=== PATIENT | male | born 1955 | race Two or more races ===

== ENCOUNTER 2017-05-15 00:50 | Inpatient (IN) | payer OTHER ==
[~2017-05-15] VITALS: Ht 193 cm; Wt 92.4 kg
[2017-05-15 03:01] LABS: HEMATOCRIT 37.5 % (39.2-51.8); HEMOGLOBIN 12.4 g/dL (13.7-18.0); WHITE BLOOD COUNT 15.3 x10^3/uL (3.4-10)
[2017-05-15 03:14] LABS: BLOOD UREA NITROGEN 13 mg/dL (7-18)
[2017-05-15] MEDS ORDERED: SODIUM CHLORIDE 0.9% 1,000ML IVBOLUS ONE (04:30)
[2017-05-15] MEDS ORDERED: CEFTRIAXONE PMX 1GM/50ML 50 ML IVPB ONE (04:30)
[2017-05-15] MEDS ORDERED: SODIUM CHLORIDE 0.9% 1,000 ML IV ONE (04:31)
[2017-05-15] MEDS ORDERED: TEMAZEPAM 15 MG CAPSULE PO PRN (05:00)
[2017-05-15] MEDS ORDERED: ONDANSETRON 2MG/ML, 2ML IVPush PRN ×2 (05:00)
[2017-05-15] MEDS ORDERED: CEFTRIAXONE PMX 1GM/50ML 50 ML IV SCH (05:00)
[2017-05-15] MEDS ORDERED: MORPHINE SULFATE 4 MG/ML, 1ML IVPush PRN (05:00)
[2017-05-15 07:00] VITALS: BP 135/89
[2017-05-15] MEDS: KETOROLAC 30 MG/1 ML IVPush SCH ×3 (07:44→19:29)
[2017-05-15] MEDS ORDERED: METHOCARBAMOL 500 MG TABLET PO ONE (08:00)
[2017-05-15 12:06] VITALS: BP 135/89
[2017-05-15 13:53] VITALS: BP 140/84
[2017-05-15 19:56] VITALS: BP 146/85
[2017-05-15] MEDS ORDERED: PHARMACOKINETIC CONSULTATION MC ONE (23:45)
[2017-05-15] MEDS ORDERED: PHARMACOKINETIC MONITORING MC PRN (23:45)
[2017-05-15] MEDS: VANCOMYCIN 1,900 MG in SODIUM CHLORIDE 0.9% 250 ML IV SCH (23:54)
[2017-05-16] MEDS ORDERED: VANCOMYCIN PER PHARMACY MC PRN
[2017-05-16] MEDS: KETOROLAC 30 MG/1 ML IVPush SCH ×4 (02:01→22:54)
[2017-05-16 02:05] VITALS: BP 136/88
[2017-05-16 05:24] LABS: HEMATOCRIT 35.9 % (39.2-51.8); HEMOGLOBIN 11.8 g/dL (13.7-18.0); WHITE BLOOD COUNT 12.8 x10^3/uL (3.4-10)
[2017-05-16 05:33] LABS: BLOOD UREA NITROGEN 12 mg/dL (7-18)
[2017-05-16] MEDS ORDERED: POTASSIUM CHLORIDE 20 MEQ TAB.ER.PRT PO ONE (06:00)
[2017-05-16 08:17] VITALS: BP 130/84
[2017-05-16] MEDS: CEFTRIAXONE PMX 2GM/50ML 50 ML IV SCH (08:58)
[2017-05-16] MEDS ORDERED: morphine SULFATE 10 MG/ML, 1ML ONE (11:36)
[2017-05-16] MEDS ORDERED: GADOBUTROL 10 MMOL/10 ML PFS ONE (12:11)
[2017-05-16] MEDS ORDERED: morphine SULFATE 10 MG/ML, 1ML IVPush ONE (13:30)
[2017-05-16 16:45] VITALS: BP 137/83
[2017-05-16] MEDS: VANCOMYCIN 1,900 MG in SODIUM CHLORIDE 0.9% 250 ML IV SCH (17:28)
[2017-05-16 20:19] VITALS: BP 126/79
[2017-05-17 01:41] VITALS: BP 125/80
[2017-05-17 04:54] LABS: HEMOGLOBIN 12.4 g/dL (13.7-18.0)
[2017-05-17 05:22] LABS: ASPARTATE AMINO TRANSFERASE 27 U/L (15-37); BLOOD UREA NITROGEN 12 mg/dL (7-18)
[2017-05-17] MEDS: KETOROLAC 30 MG/1 ML IVPush SCH ×4 (05:29→23:53)
[2017-05-17 06:26] VITALS: BP 136/85
[2017-05-17] MEDS: CEFTRIAXONE PMX 2GM/50ML 50 ML IV SCH (09:21)
[2017-05-17] MEDS: VANCOMYCIN 1,900 MG in SODIUM CHLORIDE 0.9% 250 ML IV SCH (12:09)
[2017-05-17 13:45] VITALS: BP 111/69
[2017-05-17] MEDS ORDERED: CEFAZOLIN 2,000 MG in SODIUM CHLORIDE 0.9% 50 ML IV SCH (15:00)
[2017-05-17 19:22] VITALS: BP 138/89
[2017-05-17] MEDS: CEFAZOLIN PMX 2GM/50ML 50 ML IVPB SCH (23:53)
[2017-05-18 00:30] VITALS: BP 139/86
[2017-05-18] MEDS ORDERED: OXYcodone IR 5MG TABLET PO ONE (02:00)
[2017-05-18] MEDS: KETOROLAC 30 MG/1 ML IVPush SCH ×4 (05:42→23:44)
[2017-05-18 05:51] LABS: HEMATOCRIT 36.8 % (39.2-51.8); HEMOGLOBIN 12.3 g/dL (13.7-18.0); WHITE BLOOD COUNT 11.1 x10^3/uL (3.4-10)
[2017-05-18 06:07] LABS: BLOOD UREA NITROGEN 12 mg/dL (7-18)
[2017-05-18 08:40] VITALS: BP 116/73
[2017-05-18] MEDS: HYDROcodone/APAP 5/325 TABLET PO PRN ×2 (09:17→16:39)
[2017-05-18] MEDS: CEFAZOLIN PMX 2GM/50ML 50 ML IVPB SCH ×3 (09:17→23:44)
[2017-05-18 15:00] VITALS: BP 116/74
[2017-05-18 20:18] VITALS: BP 136/83
[2017-05-19 01:12] VITALS: BP 128/84
[2017-05-19] MEDS: KETOROLAC 30 MG/1 ML IVPush SCH ×3 (05:40→18:43)
[2017-05-19 06:00] LABS: HEMATOCRIT 36.5 % (39.2-51.8); HEMOGLOBIN 12.1 g/dL (13.7-18.0); WHITE BLOOD COUNT 9.9 x10^3/uL (3.4-10)
[2017-05-19 06:11] LABS: BLOOD UREA NITROGEN 11 mg/dL (7-18)
[2017-05-19 07:37] VITALS: BP 125/83
[2017-05-19] MEDS: CEFAZOLIN PMX 2GM/50ML 50 ML IVPB SCH ×2 (08:31→16:13)
[2017-05-19] MEDS ORDERED: MAGNESIUM HYDROXIDE 8%, 30ML UDC PO PRN (09:00)
[2017-05-19] MEDS ORDERED: POLYETHYLENE GLYCOL 17 GM PACKET PO PRN (09:00)
[2017-05-19 12:47] VITALS: BP 135/90
[2017-05-19] MEDS: HYDROcodone/APAP 5/325 TABLET PO PRN (14:25)
[2017-05-19 19:11] VITALS: BP 131/79
[2017-05-19] MEDS: DOCUSATE 100 MG CAPSULE PO SCH (21:35)
[2017-05-20 00:09] VITALS: BP 148/92
[2017-05-20] MEDS: CEFAZOLIN PMX 2GM/50ML 50 ML IVPB SCH ×4 (00:15→19:10)
[2017-05-20] MEDS: KETOROLAC 30 MG/1 ML IVPush SCH ×2 (00:15→05:25)
[2017-05-20 06:33] VITALS: BP 126/82
[2017-05-20] MEDS: METHOCARBAMOL 750 MG TABLET PO PRN (08:27)
[2017-05-20] MEDS: HYDROcodone/APAP 5/325 TABLET PO PRN ×2 (08:27→13:20)
[2017-05-20] MEDS: DOCUSATE 100 MG CAPSULE PO SCH ×2 (08:27→19:57)
[2017-05-20 12:32] VITALS: BP 140/80
[2017-05-20 19:10] VITALS: BP 138/77
[2017-05-21 00:35] VITALS: BP 120/74
[2017-05-21] MEDS: HYDROcodone/APAP 5/325 TABLET PO PRN ×4 (02:18→18:10)
[2017-05-21] MEDS: CEFAZOLIN PMX 2GM/50ML 50 ML IVPB SCH ×3 (02:18→18:11)
[2017-05-21 08:00] VITALS: BP 114/68
[2017-05-21] MEDS: DOCUSATE 100 MG CAPSULE PO SCH ×2 (08:59→20:47)
[2017-05-21 14:43] VITALS: BP 121/67
[2017-05-21 20:00] VITALS: BP 114/66
[2017-05-22 01:10] VITALS: BP 108/69
[2017-05-22] MEDS: CEFAZOLIN PMX 2GM/50ML 50 ML IVPB SCH ×3 (02:19→18:25)
[2017-05-22] MEDS: DOCUSATE 100 MG CAPSULE PO SCH ×2 (08:46→22:03)
[2017-05-22] MEDS: HYDROcodone/APAP 5/325 TABLET PO PRN (08:46)
[2017-05-22 08:49] VITALS: BP 115/78
[2017-05-22 14:29] VITALS: BP 127/81
[2017-05-22 21:58] VITALS: BP 123/74
[2017-05-22 22:08] VITALS: BP 123/74
[2017-05-23] MEDS: CEFAZOLIN PMX 2GM/50ML 50 ML IVPB SCH ×3 (03:12→18:16)
[2017-05-23 03:40] VITALS: BP 108/71
[2017-05-23 07:49] VITALS: BP 95/68
[2017-05-23] MEDS: DOCUSATE 100 MG CAPSULE PO SCH ×2 (08:36→19:50)
[2017-05-23] MEDS: HYDROcodone/APAP 5/325 TABLET PO PRN ×2 (10:27→14:43)
[2017-05-23] MEDS ORDERED: LORazepam 2 MG/ML, 1ML IVPush ONE (11:00)
[2017-05-23 14:37] VITALS: BP 123/76
[2017-05-23] MEDS ORDERED: GADOBUTROL 10 MMOL/10 ML PFS ONE (16:33)
[2017-05-23 19:59] VITALS: BP 101/53
[2017-05-24] MEDS: CEFAZOLIN PMX 2GM/50ML 50 ML IVPB SCH ×3 (02:25→18:41)
[2017-05-24 02:50] VITALS: BP 97/62
[2017-05-24 04:06] LABS: ASPARTATE AMINO TRANSFERASE 34 U/L (15-37); BLOOD UREA NITROGEN 15 mg/dL (7-18)
[2017-05-24 04:11] LABS: HEMOGLOBIN 11.5 g/dL (13.7-18.0); WHITE BLOOD COUNT 8.1 x10^3/uL (3.4-10)
[2017-05-24 07:05] VITALS: BP 109/70
[2017-05-24] MEDS: DOCUSATE 100 MG CAPSULE PO SCH ×2 (09:24→20:49)
[2017-05-24] MEDS ORDERED: KETOROLAC 30 MG/1 ML ONE (10:21)
[2017-05-24] MEDS ORDERED: KETAMINE 10 MG/ML, 20ML ONE (10:21)
[2017-05-24] MEDS ORDERED: METOCLOPRAMIDE 5 MG/ML, 2ML ONE (10:21)
[2017-05-24] MEDS ORDERED: ONDANSETRON 2MG/ML, 2ML ONE (10:21)
[2017-05-24] MEDS ORDERED: PROPOFOL 10 MG/ML, 20ML ONE (10:21)
[2017-05-24] MEDS ORDERED: CEFAZOLIN 1,000 MG ONE (10:21)
[2017-05-24 14:09] VITALS: BP 108/63
[2017-05-24] MEDS ORDERED: MIDAZOLAM 1 MG/ML, 2ML ONE (18:00)
[2017-05-24] MEDS ORDERED: HYDROmorphone 2 MG/ML, 1ML ONE (18:00)
[2017-05-24] MEDS ORDERED: PROMETHAZINE 25 MG/ML, 1ML IV PRN (19:00)
[2017-05-24] MEDS ORDERED: HYDROmorphone 1 MG/ML, 1ML IV PRN (19:00)
[2017-05-24] MEDS ORDERED: hydrALAzine 20 MG/ML, 1ML IV PRN (19:00)
[2017-05-24] MEDS ORDERED: LABETALOL 5MG/ML, 20ML IV PRN (19:00)
[2017-05-24] MEDS ORDERED: ACETAMINOPHEN 325 MG TABLET PO PRN (19:00)
[2017-05-24] MEDS ORDERED: FENTANYL PF 100 MCG/2ML IV PRN (19:00)
[2017-05-24] MEDS ORDERED: MEPERIDINE/PF 25MG/0.5ML IVPush PRN (19:00)
[2017-05-24] MEDS ORDERED: OXYcodone 5 MG/5 ML ORAL.SOL UDC PO PRN (19:00)
[2017-05-24] MEDS ORDERED: ONDANSETRON 2MG/ML, 2ML IVPush PRN (19:00)
[2017-05-24 20:34] VITALS: BP 93/57
[2017-05-25 02:05] VITALS: BP 93/57
[2017-05-25] MEDS: CEFAZOLIN PMX 2GM/50ML 50 ML IVPB SCH ×3 (02:17→18:06)
[2017-05-25] MEDS: HYDROcodone/APAP 5/325 TABLET PO PRN (02:17)
[2017-05-25 06:45] VITALS: BP 96/61
[2017-05-25] MEDS: DOCUSATE 100 MG CAPSULE PO SCH ×2 (09:13→20:04)
[2017-05-25 15:22] VITALS: BP 98/57
[2017-05-25] MEDS ORDERED: LIDOCAINE 1%, 20ML ONE (15:31)
[2017-05-25 18:58] VITALS: BP 110/70
[2017-05-26 02:21] VITALS: BP 93/51
[2017-05-26] MEDS: CEFAZOLIN PMX 2GM/50ML 50 ML IVPB SCH ×3 (02:29→18:06)
[2017-05-26 03:49] LABS: HEMATOCRIT 27.8 % (39.2-51.8); HEMOGLOBIN 9.4 g/dL (13.7-18.0); WHITE BLOOD COUNT 10.3 x10^3/uL (3.4-10)
[2017-05-26 04:00] LABS: BLOOD UREA NITROGEN 13 mg/dL (7-18)
[2017-05-26] MEDS: DOCUSATE 100 MG CAPSULE PO SCH ×2 (08:36→20:12)
[2017-05-26 09:00] VITALS: BP 101/59
[2017-05-26 12:31] VITALS: BP 121/61
[2017-05-26 19:16] VITALS: BP 105/61
[2017-05-27] MEDS: CEFAZOLIN PMX 2GM/50ML 50 ML IVPB SCH ×3 (02:06→18:55)
[2017-05-27 02:07] VITALS: BP 103/62
[2017-05-27 08:03] VITALS: BP 101/53
[2017-05-27] MEDS: DOCUSATE 100 MG CAPSULE PO SCH ×2 (08:41→20:41)
[2017-05-27 14:00] VITALS: BP 101/52
[2017-05-27] MEDS: ENOXAPARIN 40 MG/0.4 ML SQ SCH (16:52)
[2017-05-27 19:17] VITALS: BP 115/63
[2017-05-28 01:39] VITALS: BP 94/58
[2017-05-28] MEDS: CEFAZOLIN PMX 2GM/50ML 50 ML IVPB SCH ×3 (02:16→18:31)
[2017-05-28] MEDS: HYDROcodone/APAP 5/325 TABLET PO PRN (02:23)
[2017-05-28 05:54] LABS: BLOOD UREA NITROGEN 13 mg/dL (7-18)
[2017-05-28 06:24] LABS: HEMATOCRIT 25.2 % (39.2-51.8); HEMOGLOBIN 8.4 g/dL (13.7-18.0); WHITE BLOOD COUNT 5.8 x10^3/uL (3.4-10)
[2017-05-28 06:40] VITALS: BP 95/59
[2017-05-28] MEDS: DOCUSATE 100 MG CAPSULE PO SCH ×2 (08:54→20:11)
[2017-05-28 13:15] VITALS: BP 95/51
[2017-05-28] MEDS: ENOXAPARIN 40 MG/0.4 ML SQ SCH (18:30)
[2017-05-28 18:58] VITALS: BP 100/66
[2017-05-29 02:00] VITALS: BP 102/68
[2017-05-29] MEDS: CEFAZOLIN PMX 2GM/50ML 50 ML IVPB SCH ×3 (02:04→18:14)
[2017-05-29 07:51] VITALS: BP 117/57
[2017-05-29] MEDS: DOCUSATE 100 MG CAPSULE PO SCH ×2 (09:27→20:00)
[2017-05-29 12:50] VITALS: BP 130/72
[2017-05-29] MEDS: ENOXAPARIN 40 MG/0.4 ML SQ SCH (17:02)
[2017-05-29 19:02] VITALS: BP 114/72
[2017-05-30 01:19] VITALS: BP 108/73
[2017-05-30] MEDS: CEFAZOLIN PMX 2GM/50ML 50 ML IVPB SCH ×3 (02:51→18:31)
[2017-05-30 08:22] VITALS: BP 107/65
[2017-05-30] MEDS: DOCUSATE 100 MG CAPSULE PO SCH ×2 (08:45→19:56)
[2017-05-30 15:00] VITALS: BP 127/76
[2017-05-30] MEDS: ENOXAPARIN 40 MG/0.4 ML SQ SCH (17:13)
[2017-05-30 18:50] VITALS: BP 112/67
[2017-05-31 02:10] VITALS: BP 143/66
[2017-05-31] MEDS: CEFAZOLIN PMX 2GM/50ML 50 ML IVPB SCH ×3 (02:40→18:31)
[2017-05-31 06:15] LABS: BLOOD UREA NITROGEN 13 mg/dL (7-18)
[2017-05-31 06:18] LABS: HEMATOCRIT 27.5 % (39.2-51.8); HEMOGLOBIN 9.2 g/dL (13.7-18.0); WHITE BLOOD COUNT 7.1 x10^3/uL (3.4-10)
[2017-05-31 06:24] LABS: ASPARTATE AMINO TRANSFERASE 38 U/L (15-37)
[2017-05-31 07:20] VITALS: BP 103/64
[2017-05-31] MEDS: DOCUSATE 100 MG CAPSULE PO SCH ×2 (09:27→22:19)
[2017-05-31 14:53] VITALS: BP 113/77
[2017-05-31] MEDS: ENOXAPARIN 40 MG/0.4 ML SQ SCH (18:31)
[2017-05-31 19:47] VITALS: BP 107/71
[2017-06-01 02:42] VITALS: BP 107/69
[2017-06-01] MEDS: CEFAZOLIN PMX 2GM/50ML 50 ML IVPB SCH ×3 (03:02→18:43)
[2017-06-01 06:54] VITALS: BP 117/75
[2017-06-01] MEDS: DOCUSATE 100 MG CAPSULE PO SCH ×2 (09:00→20:28)
[2017-06-01 12:42] VITALS: BP 111/74
[2017-06-01] MEDS: ENOXAPARIN 40 MG/0.4 ML SQ SCH (18:46)
[2017-06-01 20:34] VITALS: BP 102/62
[2017-06-02] MEDS: CEFAZOLIN PMX 2GM/50ML 50 ML IVPB SCH ×3 (02:57→18:36)
[2017-06-02 03:05] VITALS: BP 99/66
[2017-06-02 07:07] VITALS: BP 114/78
[2017-06-02] MEDS: DOCUSATE 100 MG CAPSULE PO SCH ×2 (08:33→19:52)
[2017-06-02 14:19] VITALS: BP 129/80
[2017-06-02] MEDS: ENOXAPARIN 40 MG/0.4 ML SQ SCH (18:35)
[2017-06-02 19:37] VITALS: BP 113/77
[2017-06-03 01:14] VITALS: BP 119/69
[2017-06-03] MEDS: CEFAZOLIN PMX 2GM/50ML 50 ML IVPB SCH ×3 (02:33→18:11)
[2017-06-03 07:37] VITALS: BP 109/66
[2017-06-03] MEDS: DOCUSATE 100 MG CAPSULE PO SCH ×2 (09:46→20:43)
[2017-06-03 14:15] VITALS: BP 109/73
[2017-06-03] MEDS: ENOXAPARIN 40 MG/0.4 ML SQ SCH (18:11)
[2017-06-03 21:04] VITALS: BP 135/75
[2017-06-04 01:54] VITALS: BP 102/64
[2017-06-04] MEDS: CEFAZOLIN PMX 2GM/50ML 50 ML IVPB SCH ×3 (02:10→18:29)
[2017-06-04 08:09] VITALS: BP 114/68
[2017-06-04] MEDS: DOCUSATE 100 MG CAPSULE PO SCH ×2 (08:46→20:29)
[2017-06-04 14:52] VITALS: BP 109/69
[2017-06-04] MEDS: ENOXAPARIN 40 MG/0.4 ML SQ SCH (18:29)
[2017-06-04 20:22] VITALS: BP 91/69
[2017-06-05] MEDS: CEFAZOLIN PMX 2GM/50ML 50 ML IVPB SCH ×3 (02:05→18:32)
[2017-06-05 02:12] VITALS: BP 103/68
[2017-06-05 07:14] VITALS: BP 129/69
[2017-06-05 07:17] VITALS: BP 103/72
[2017-06-05] MEDS: DOCUSATE 100 MG CAPSULE PO SCH ×2 (09:43→20:36)
[2017-06-05 14:16] VITALS: BP 104/71
[2017-06-05] MEDS: ENOXAPARIN 40 MG/0.4 ML SQ SCH (18:32)
[2017-06-05 20:21] VITALS: BP 144/75
[2017-06-06 01:45] VITALS: BP 113/64
[2017-06-06] MEDS: CEFAZOLIN PMX 2GM/50ML 50 ML IVPB SCH ×3 (02:03→18:43)
[2017-06-06 07:28] VITALS: BP 105/71
[2017-06-06] MEDS: DOCUSATE 100 MG CAPSULE PO SCH ×2 (10:33→20:15)
[2017-06-06 18:34] VITALS: BP 117/70
[2017-06-06] MEDS: ENOXAPARIN 40 MG/0.4 ML SQ SCH (18:44)
[2017-06-07 00:47] VITALS: BP 98/65
[2017-06-07] MEDS: CEFAZOLIN PMX 2GM/50ML 50 ML IVPB SCH ×3 (02:40→18:57)
[2017-06-07 02:51] LABS: HEMATOCRIT 31.5 % (39.2-51.8); HEMOGLOBIN 10.1 g/dL (13.7-18.0); WHITE BLOOD COUNT 7.1 x10^3/uL (3.4-10)
[2017-06-07 03:03] LABS: ASPARTATE AMINO TRANSFERASE 23 U/L (15-37); BLOOD UREA NITROGEN 16 mg/dL (7-18)
[2017-06-07 08:29] VITALS: BP 113/79
[2017-06-07] MEDS: DOCUSATE 100 MG CAPSULE PO SCH ×2 (09:12→20:22)
[2017-06-07 14:54] VITALS: BP 112/75
[2017-06-07 19:54] VITALS: BP 105/69
[2017-06-07] MEDS: ENOXAPARIN 40 MG/0.4 ML SQ SCH (20:22)
[2017-06-08 01:27] VITALS: BP 109/68
[2017-06-08] MEDS: CEFAZOLIN PMX 2GM/50ML 50 ML IVPB SCH ×4 (02:25→23:41)
[2017-06-08 08:27] VITALS: BP 110/69
[2017-06-08] MEDS: DOCUSATE 100 MG CAPSULE PO SCH ×2 (09:17→21:11)
[2017-06-08 14:44] VITALS: BP 109/71
[2017-06-08 20:00] VITALS: BP 116/61
[2017-06-08] MEDS: ENOXAPARIN 40 MG/0.4 ML SQ SCH (21:11)
[2017-06-09] MEDS: DOCUSATE 100 MG CAPSULE PO SCH ×2 (10:24→20:15)
[2017-06-09] MEDS: CEFAZOLIN PMX 2GM/50ML 50 ML IVPB SCH ×2 (10:24→18:20)
[2017-06-09 19:19] VITALS: BP 150/66
[2017-06-09] MEDS: ENOXAPARIN 40 MG/0.4 ML SQ SCH (20:16)
[2017-06-10] MEDS: CEFAZOLIN PMX 2GM/50ML 50 ML IVPB SCH ×3 (02:04→18:42)
[2017-06-10 02:09] VITALS: BP 100/62
[2017-06-10 08:29] VITALS: BP 98/64
[2017-06-10] MEDS: DOCUSATE 100 MG CAPSULE PO SCH ×2 (10:08→21:06)
[2017-06-10 13:52] VITALS: BP 122/81
[2017-06-10 19:55] VITALS: BP 110/65
[2017-06-10] MEDS: ENOXAPARIN 40 MG/0.4 ML SQ SCH (21:06)
[2017-06-11] MEDS: CEFAZOLIN PMX 2GM/50ML 50 ML IVPB SCH ×3 (02:11→18:17)
[2017-06-11 02:45] VITALS: BP 109/74
[2017-06-11 07:45] VITALS: BP 111/81
[2017-06-11] MEDS: DOCUSATE 100 MG CAPSULE PO SCH ×2 (11:49→20:17)
[2017-06-11 15:21] VITALS: BP 117/73
[2017-06-11 19:35] VITALS: BP 107/67
[2017-06-11] MEDS: ENOXAPARIN 40 MG/0.4 ML SQ SCH (20:17)
[2017-06-12 02:54] VITALS: BP 111/70
[2017-06-12] MEDS: CEFAZOLIN PMX 2GM/50ML 50 ML IVPB SCH ×3 (03:01→19:45)
[2017-06-12] MEDS: HYDROcodone/APAP 5/325 TABLET PO PRN (03:02)
[2017-06-12 07:50] VITALS: BP 108/73
[2017-06-12] MEDS: DOCUSATE 100 MG CAPSULE PO SCH ×2 (10:04→21:00)
[2017-06-12 12:10] VITALS: BP 124/85
[2017-06-12 19:26] VITALS: BP 110/76
[2017-06-12] MEDS: ENOXAPARIN 40 MG/0.4 ML SQ SCH (19:45)
[2017-06-13 02:15] VITALS: BP 101/66
[2017-06-13] MEDS: CEFAZOLIN PMX 2GM/50ML 50 ML IVPB SCH ×3 (04:04→20:16)
[2017-06-13 07:38] VITALS: BP 104/69
[2017-06-13] MEDS: DOCUSATE 100 MG CAPSULE PO SCH ×2 (10:18→20:16)
[2017-06-13 16:07] VITALS: BP 113/75
[2017-06-13 19:58] VITALS: BP 116/68
[2017-06-13] MEDS: ENOXAPARIN 40 MG/0.4 ML SQ SCH (20:16)
[2017-06-14 01:39] VITALS: BP 105/67
[2017-06-14] MEDS: CEFAZOLIN PMX 2GM/50ML 50 ML IVPB SCH ×3 (04:33→20:28)
[2017-06-14] MEDS: DOCUSATE 100 MG CAPSULE PO SCH ×2 (07:31→20:28)
[2017-06-14 07:48] VITALS: BP 130/88
[2017-06-14 14:00] VITALS: BP 121/84
[2017-06-14 19:14] VITALS: BP 142/78
[2017-06-14] MEDS: ENOXAPARIN 40 MG/0.4 ML SQ SCH (20:28)
[2017-06-15 02:16] VITALS: BP 103/68
[2017-06-15] MEDS: CEFAZOLIN PMX 2GM/50ML 50 ML IVPB SCH ×3 (04:26→20:34)
[2017-06-15 04:53] LABS: BLOOD UREA NITROGEN 14 mg/dL (7-18)
[2017-06-15 05:00] LABS: HEMATOCRIT 32.6 % (39.2-51.8); HEMOGLOBIN 10.8 g/dL (13.7-18.0); WHITE BLOOD COUNT 5.8 x10^3/uL (3.4-10)
[2017-06-15 07:53] VITALS: BP 109/78
[2017-06-15] MEDS: DOCUSATE 100 MG CAPSULE PO SCH ×2 (08:52→20:33)
[2017-06-15 14:15] VITALS: BP 112/74
[2017-06-15 20:27] VITALS: BP 103/61
[2017-06-15] MEDS: ENOXAPARIN 40 MG/0.4 ML SQ SCH (20:34)
[2017-06-16 01:43] VITALS: BP 111/74
[2017-06-16] MEDS: CEFAZOLIN PMX 2GM/50ML 50 ML IVPB SCH ×3 (04:05→19:43)
[2017-06-16 08:00] VITALS: BP 102/70
[2017-06-16] MEDS: DOCUSATE 100 MG CAPSULE PO SCH ×2 (08:26→19:43)
[2017-06-16] MEDS: METHOCARBAMOL 750 MG TABLET PO PRN (08:36)
[2017-06-16 13:57] VITALS: BP 114/75
[2017-06-16] MEDS: ENOXAPARIN 40 MG/0.4 ML SQ SCH (19:43)
[2017-06-16 20:36] VITALS: BP 110/74
[2017-06-17 02:33] VITALS: BP 100/61
[2017-06-17] MEDS: CEFAZOLIN PMX 2GM/50ML 50 ML IVPB SCH ×3 (04:02→19:51)
[2017-06-17] MEDS: DOCUSATE 100 MG CAPSULE PO SCH ×2 (07:55→19:51)
[2017-06-17] MEDS: METHOCARBAMOL 750 MG TABLET PO PRN (07:55)
[2017-06-17 08:00] VITALS: BP 111/76
[2017-06-17] MEDS ORDERED: GADOBUTROL 10 MMOL/10 ML PFS ONE (10:23)
[2017-06-17 15:23] VITALS: BP 118/73
[2017-06-17] MEDS: ENOXAPARIN 40 MG/0.4 ML SQ SCH (19:51)
[2017-06-17 20:50] VITALS: BP 103/73
[2017-06-18 02:39] VITALS: BP 104/69
[2017-06-18] MEDS: CEFAZOLIN PMX 2GM/50ML 50 ML IVPB SCH ×3 (03:47→19:47)
[2017-06-18 08:00] VITALS: BP 109/73
[2017-06-18] MEDS: METHOCARBAMOL 750 MG TABLET PO PRN (09:28)
[2017-06-18] MEDS: DOCUSATE 100 MG CAPSULE PO SCH ×2 (09:28→19:46)
[2017-06-18 14:00] VITALS: BP 108/68
[2017-06-18 19:43] VITALS: BP 102/66
[2017-06-18] MEDS: ENOXAPARIN 40 MG/0.4 ML SQ SCH (19:47)
[2017-06-19 01:33] VITALS: BP 96/63
[2017-06-19] MEDS: CEFAZOLIN PMX 2GM/50ML 50 ML IVPB SCH ×3 (04:05→19:26)
[2017-06-19 07:37] VITALS: BP 125/85
[2017-06-19] MEDS: DOCUSATE 100 MG CAPSULE PO SCH ×2 (09:00→19:26)
[2017-06-19 14:39] VITALS: BP 103/63
[2017-06-19] MEDS: ENOXAPARIN 40 MG/0.4 ML SQ SCH (19:26)
[2017-06-19 19:59] VITALS: BP 106/72
[2017-06-20 03:00] VITALS: BP 104/68
[2017-06-20] MEDS: CEFAZOLIN PMX 2GM/50ML 50 ML IVPB SCH ×3 (03:57→20:48)
[2017-06-20 06:42] VITALS: BP 115/50
[2017-06-20] MEDS: DOCUSATE 100 MG CAPSULE PO SCH ×2 (09:00→20:47)
[2017-06-20] MEDS ORDERED: LIDOCAINE 1%, 20ML ONE (15:16)
[2017-06-20 15:36] VITALS: BP 99/63
[2017-06-20 17:14] LABS: CELLS COUNTED 1070; DILUTION 1; WBC SQUARES COUNTED 1
[2017-06-20 18:48] VITALS: BP 106/69
[2017-06-20] MEDS: ENOXAPARIN 40 MG/0.4 ML SQ SCH (20:47)
[2017-06-21 01:44] VITALS: BP 10/65
[2017-06-21] MEDS: CEFAZOLIN PMX 2GM/50ML 50 ML IVPB SCH ×3 (04:27→19:38)
[2017-06-21 05:09] LABS: ASPARTATE AMINO TRANSFERASE 22 U/L (15-37); BLOOD UREA NITROGEN 16 mg/dL (7-18); C-REACTIVE PROTEIN, QUANT 0.55 mg/dL (0.02-0.49)
[2017-06-21 05:11] LABS: HEMATOCRIT 35.7 % (39.2-51.8); HEMOGLOBIN 11.9 g/dL (13.7-18.0); WHITE BLOOD COUNT 5.7 x10^3/uL (3.4-10)
[2017-06-21 08:34] VITALS: BP 127/86
[2017-06-21] MEDS: DOCUSATE 100 MG CAPSULE PO SCH ×2 (10:08→19:38)
[2017-06-21 15:38] VITALS: BP 117/86
[2017-06-21 19:33] VITALS: BP 122/82
[2017-06-21] MEDS: ENOXAPARIN 40 MG/0.4 ML SQ SCH (19:38)
[2017-06-22 01:41] VITALS: BP 118/76
[2017-06-22] MEDS: CEFAZOLIN PMX 2GM/50ML 50 ML IVPB SCH ×3 (03:40→20:24)
[2017-06-22 07:42] VITALS: BP 100/66
[2017-06-22] MEDS: DOCUSATE 100 MG CAPSULE PO SCH ×2 (09:00→20:24)
[2017-06-22 13:00] VITALS: BP 111/73
[2017-06-22] MEDS: ENOXAPARIN 40 MG/0.4 ML SQ SCH (20:24)
[2017-06-22 21:23] VITALS: BP 104/67
[2017-06-23 00:55] VITALS: BP 100/68
[2017-06-23] MEDS: CEFAZOLIN PMX 2GM/50ML 50 ML IVPB SCH ×3 (04:13→20:08)
[2017-06-23 07:38] VITALS: BP 107/70
[2017-06-23] MEDS: DOCUSATE 100 MG CAPSULE PO SCH ×2 (09:00→20:59)
[2017-06-23 14:00] VITALS: BP 103/68
[2017-06-23 18:46] VITALS: BP 104/72
[2017-06-23] MEDS: ENOXAPARIN 40 MG/0.4 ML SQ SCH (20:08)
[2017-06-24 03:31] VITALS: BP 102/65
[2017-06-24] MEDS: CEFAZOLIN PMX 2GM/50ML 50 ML IVPB SCH ×3 (04:15→20:44)
[2017-06-24 07:00] VITALS: BP 112/70
[2017-06-24] MEDS: DOCUSATE 100 MG CAPSULE PO SCH ×3 (09:00→20:44)
[2017-06-24 13:55] VITALS: BP 121/79
[2017-06-24 19:41] VITALS: BP 109/70
[2017-06-24] MEDS: ENOXAPARIN 40 MG/0.4 ML SQ SCH (20:44)
[2017-06-25 02:51] VITALS: BP 104/69
[2017-06-25] MEDS: CEFAZOLIN PMX 2GM/50ML 50 ML IVPB SCH ×3 (05:00→19:48)
[2017-06-25 07:22] VITALS: BP 117/78
[2017-06-25] MEDS: DOCUSATE 100 MG CAPSULE PO SCH ×2 (11:21→19:48)
[2017-06-25 13:31] VITALS: BP 122/76
[2017-06-25] MEDS: ENOXAPARIN 40 MG/0.4 ML SQ SCH (19:49)
[2017-06-25 21:42] VITALS: BP 99/59
[2017-06-26 02:49] VITALS: BP 100/64
[2017-06-26] MEDS: CEFAZOLIN PMX 2GM/50ML 50 ML IVPB SCH ×3 (04:19→20:08)
[2017-06-26 07:08] VITALS: BP 123/85
[2017-06-26] MEDS: DOCUSATE 100 MG CAPSULE PO SCH ×2 (10:30→20:07)
[2017-06-26 13:59] VITALS: BP 104/70
[2017-06-26] MEDS: ENOXAPARIN 40 MG/0.4 ML SQ SCH (20:08)
[2017-06-26 20:15] VITALS: BP 103/67
[2017-06-27 01:28] VITALS: BP 94/58
[2017-06-27] MEDS: CEFAZOLIN PMX 2GM/50ML 50 ML IVPB SCH ×3 (03:43→20:10)
[2017-06-27 07:23] VITALS: BP 107/69
[2017-06-27] MEDS: DOCUSATE 100 MG CAPSULE PO SCH ×2 (10:05→20:10)
[2017-06-27 13:57] VITALS: BP 110/74
[2017-06-27 20:00] VITALS: BP 107/72
[2017-06-27] MEDS: ENOXAPARIN 40 MG/0.4 ML SQ SCH (20:10)
[2017-06-28 03:00] VITALS: BP 101/65
[2017-06-28] MEDS: CEFAZOLIN PMX 2GM/50ML 50 ML IVPB SCH ×3 (03:46→20:26)
[2017-06-28 04:29] LABS: HEMATOCRIT 37.7 % (39.2-51.8); HEMOGLOBIN 12.4 g/dL (13.7-18.0); WHITE BLOOD COUNT 5.5 x10^3/uL (3.4-10)
[2017-06-28 04:42] LABS: BLOOD UREA NITROGEN 15 mg/dL (7-18)
[2017-06-28 04:47] LABS: ASPARTATE AMINO TRANSFERASE 22 U/L (15-37); C-REACTIVE PROTEIN, QUANT 0.24 mg/dL (0.02-0.49)
[2017-06-28 08:15] VITALS: BP 119/77
[2017-06-28] MEDS: DOCUSATE 100 MG CAPSULE PO SCH ×2 (09:31→21:11)
[2017-06-28 14:00] VITALS: BP 118/75
[2017-06-28 19:58] VITALS: BP 120/53
[2017-06-28] MEDS: ENOXAPARIN 40 MG/0.4 ML SQ SCH (20:26)
[2017-06-29 01:47] VITALS: BP 101/63
[2017-06-29] MEDS: CEFAZOLIN PMX 2GM/50ML 50 ML IVPB SCH ×3 (04:53→20:35)
[2017-06-29 06:30] VITALS: BP 103/67
[2017-06-29] MEDS: DOCUSATE 100 MG CAPSULE PO SCH ×2 (08:27→20:35)
[2017-06-29 13:28] VITALS: BP 105/65
[2017-06-29 19:22] VITALS: BP 121/82
[2017-06-29] MEDS: ENOXAPARIN 40 MG/0.4 ML SQ SCH (20:35)
[2017-06-30 02:13] VITALS: BP 103/70
[2017-06-30] MEDS: CEFAZOLIN PMX 2GM/50ML 50 ML IVPB SCH ×3 (04:25→19:51)
[2017-06-30] MEDS: DOCUSATE 100 MG CAPSULE PO SCH ×2 (12:03→19:51)
[2017-06-30 14:00] VITALS: BP 99/66
[2017-06-30] MEDS: ENOXAPARIN 40 MG/0.4 ML SQ SCH (19:51)
[2017-06-30 20:00] VITALS: BP 127/80
[2017-07-01 04:00] VITALS: BP 108/67
[2017-07-01] MEDS: CEFAZOLIN PMX 2GM/50ML 50 ML IVPB SCH ×3 (04:21→19:54)
[2017-07-01 06:41] VITALS: BP 119/75
[2017-07-01] MEDS: DOCUSATE 100 MG CAPSULE PO SCH ×2 (08:41→19:54)
[2017-07-01 14:00] VITALS: BP 108/67
[2017-07-01 19:00] VITALS: BP 110/79
[2017-07-01] MEDS: ENOXAPARIN 40 MG/0.4 ML SQ SCH (19:54)
[2017-07-02 01:30] VITALS: BP 100/70
[2017-07-02] MEDS: CEFAZOLIN PMX 2GM/50ML 50 ML IVPB SCH ×3 (04:13→19:51)
[2017-07-02 07:46] VITALS: BP 100/66
[2017-07-02] MEDS: DOCUSATE 100 MG CAPSULE PO SCH ×2 (09:30→19:51)
[2017-07-02 13:59] VITALS: BP 118/67
[2017-07-02 19:11] VITALS: BP 115/69
[2017-07-02] MEDS: ENOXAPARIN 40 MG/0.4 ML SQ SCH (19:51)
[2017-07-03 02:25] VITALS: BP 89/61
[2017-07-03] MEDS: CEFAZOLIN PMX 2GM/50ML 50 ML IVPB SCH ×3 (04:00→20:28)
[2017-07-03 06:58] VITALS: BP 114/78
[2017-07-03] MEDS: DOCUSATE 100 MG CAPSULE PO SCH ×2 (08:13→20:28)
[2017-07-03 13:47] VITALS: BP 103/74
[2017-07-03 19:24] VITALS: BP 118/79
[2017-07-03] MEDS: ENOXAPARIN 40 MG/0.4 ML SQ SCH (20:31)
[2017-07-04 01:00] VITALS: BP 105/65
[2017-07-04] MEDS: CEFAZOLIN PMX 2GM/50ML 50 ML IVPB SCH ×3 (04:15→20:07)
[2017-07-04 08:55] VITALS: BP 110/74
[2017-07-04] MEDS: DOCUSATE 100 MG CAPSULE PO SCH ×2 (09:02→20:07)
[2017-07-04 14:32] VITALS: BP 110/67
[2017-07-04 19:25] VITALS: BP 109/74
[2017-07-04] MEDS: ENOXAPARIN 40 MG/0.4 ML SQ SCH (20:07)
[2017-07-05 02:10] VITALS: BP 100/67
[2017-07-05] MEDS: CEFAZOLIN PMX 2GM/50ML 50 ML IVPB SCH ×3 (04:43→20:29)
[2017-07-05 05:06] LABS: HEMATOCRIT 35.6 % (39.2-51.8); HEMOGLOBIN 11.8 g/dL (13.7-18.0); WHITE BLOOD COUNT 6.7 x10^3/uL (3.4-10)
[2017-07-05 05:20] LABS: ASPARTATE AMINO TRANSFERASE 22 U/L (15-37); BLOOD UREA NITROGEN 12 mg/dL (7-18); C-REACTIVE PROTEIN, QUANT 0.26 mg/dL (0.02-0.49)
[2017-07-05 08:58] VITALS: BP 105/70
[2017-07-05] MEDS: DOCUSATE 100 MG CAPSULE PO SCH ×2 (11:53→20:29)
[2017-07-05 15:12] VITALS: BP 138/85
[2017-07-05 17:46] VITALS: BP 93/59
[2017-07-05 19:42] VITALS: BP 106/60
[2017-07-05] MEDS: ENOXAPARIN 40 MG/0.4 ML SQ SCH (20:29)
[2017-07-06 01:53] VITALS: BP 100/64
[2017-07-06] MEDS: CEFAZOLIN PMX 2GM/50ML 50 ML IVPB SCH ×2 (04:13→12:05)
[2017-07-06 08:34] VITALS: BP 119/84
[2017-07-06] MEDS: DOCUSATE 100 MG CAPSULE PO SCH ×2 (10:56→20:49)
[2017-07-06] MEDS ORDERED: CEFAZOLIN PMX 2GM/50ML 50 ML IVPB SCH (16:00)
[2017-07-06 16:06] VITALS: BP 104/67
[2017-07-06 19:35] VITALS: BP 119/55
[2017-07-06] MEDS: ENOXAPARIN 40 MG/0.4 ML SQ SCH (20:49)
[2017-07-07 03:14] VITALS: BP 102/67
[2017-07-07 07:45] VITALS: BP 105/70
[2017-07-07] MEDS: DOCUSATE 100 MG CAPSULE PO SCH (08:42)
[2017-07-07 13:43] VITALS: BP 105/72
== END 2017-07-07 15:06 | disposition home or self-care (01) | DRG 853 ==
LOC: ED 04:18 → EDIP 04:31 → SUATTDRO 04:43 → 4NOR 06:00 → 5SO 06-07 17:57 → 3NE 06-10 13:30
PROVIDERS: ADMIT Internal Medicine; ATTEND Family Medicine
PROC: 02HV33Z Insertion of Infusion Device into Superior Vena Cava, Percutaneous Approach (ICD-10-PCS; 2017-05-20)
PROC: B548ZZA Ultrasonography of Superior Vena Cava, Guidance (ICD-10-PCS; 2017-05-20)
PROC: 0R9K3ZZ Drainage of Left Shoulder Joint, Percutaneous Approach (ICD-10-PCS; 2017-05-24)
PROC: 0K9800Z Drainage of Left Upper Arm Muscle with Drainage Device, Open Approach (ICD-10-PCS; principal; 2017-05-24 15:00)
PROC: B548ZZA Ultrasonography of Superior Vena Cava, Guidance (ICD-10-PCS; 2017-05-25)
PROC: 02HV33Z Insertion of Infusion Device into Superior Vena Cava, Percutaneous Approach (ICD-10-PCS; 2017-05-25)
PROC: B5181ZA Fluoroscopy of Superior Vena Cava using Low Osmolar Contrast, Guidance (ICD-10-PCS; 2017-05-25)
PROC: 0X9 Anatomical Regions, Upper Extremities, Drainage (ICD-10-PCS; 2017-06-20)
DX: A41.01 Sepsis due to Methicillin susceptible Staphylococcus aureus (principal); G06.1 Intraspinal abscess and granuloma; D64.9 Anemia, unspecified; M86.8X1 Other osteomyelitis, shoulder; S39.012A Strain of muscle, fascia and tendon of lower back, initial encounter; N39.0 Urinary tract infection, site not specified; L02.414 Cutaneous abscess of left upper limb; E87.6 Hypokalemia; M10.9 Gout, unspecified; M19.90 Unspecified osteoarthritis, unspecified site; M48.06 Spinal stenosis, lumbar region; M54.17 Radiculopathy, lumbosacral region; M60.9 Myositis, unspecified; M60.812 Other myositis, left shoulder; M65.812 Other synovitis and tenosynovitis, left shoulder; Z79.899 Other long term (current) drug therapy
CPT/HCPCS: 36415; 36569; 49405; 71010; 71020; 72131; 72158; 75989; 76937; 77001; 80048; 80053; 81001; 82565; 83605; 84145; 84550; 85025; 85651; 86140; 87040; 87070; 87075; 87077; 87086; 87147; 87176; 87186; 87205; 89051; 93306; 99285; A9585; J0690; J0696; J1170; J1650; J1885; J2250; J2405; J2704; J3370; J3490; C1751; J2060; J2270; J2765; J7030; J7050